=== PATIENT | female | born 2000 | race African-American/Black ===

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

== ENCOUNTER 2018-04-06 23:33 | Emergency (ER) | payer MEDICAID | END 2018-04-07 01:00 | disposition home or self-care (01) | LOC: D.ER 23:33 | DX: M79.605 Pain in left leg (principal); I10 Essential (primary) hypertension ==

== ENCOUNTER 2018-04-08 15:13 | Emergency (ER) | payer MEDICAID | END 2018-04-08 17:42 | disposition home or self-care (01) | LOC: D.ER 15:13 | DX: S80.12XA Contusion of left lower leg, initial encounter (principal); X58.XXXA Exposure to other specified factors, initial encounter; Y93.89 Activity, other specified; Y92.019 Unspecified place in single-family (private) house as the place of occurrence of the external cause ==